=== PATIENT | female | born 1985 | race Caucasian/White ===

== ENCOUNTER 2017-08-11 13:02 | Emergency (ER) | payer OTHER ==
--- NOTE | 2017-08-11 14:41 | ER Document Report ---
HPI - HPI Patient complains to provider of: Eyelid irritation Onset: Other - 5 days Onset/Duration: Worse Quality of pain: Burning Pain Level: 3 Context: Patient had artificial lashes applied with cyanoacrylate 5 days ago. Patient states that she has had burning and irritation to her eyelid since then. Patient has attempted to use all of oil, coconut oil as well as steam to remove the eyelashes. Patient states she has pulled some of them off. Patient complains of eyelid redness and swelling with discomfort and wants something to take these eyelashes off with. Patient does not wear glasses or contact lenses. Associated Symptoms: Other - Eyelid irritation Exacerbated by: Denies Relieved by: Denies Similar symptoms previously: No Recently seen / treated by doctor: No - ROS ROS below otherwise negative: Yes Systems Reviewed and Negative: Yes All other systems reviewed and negative - CONSTITUTIONAL Constitutional: DENIES: Fever, Chills - EENT EENT: REPORTS: Eye problems - CARDIOVASCULAR Cardiovascular: DENIES: Chest pain - DERM Skin Color: Erythema Past Medical History - General Information source: Patient - Social History Smoking Status: Never Smoker Chew tobacco use (# tins/day): No Frequency of alcohol use: Occasional Drug Abuse: None Family History: Reviewed & Not Pertinent Patient has suicidal ideation: No Patient has homicidal ideation: No Endocrine Medical History: 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 Denies: Hx Peritoneal Dialysis Past Surgical History: Reports: Hx Adenoidectomy, Hx Orthopedic Surgery, Hx Tonsillectomy, Other - Lithotripsy Vertical Provider Document - CONSTITUTIONAL Agree With Documented VS: Yes Exam Limitations: No Limitations General Appearance: WD/WN Notes: Patient continually rubbing eyelids during examination, sclera clear bilaterally , no exudates noted to eye - INFECTION CONTROL TRAVEL OUTSIDE OF THE [place] IN LAST 30 DAYS: No - HEENT HEENT: Atraumatic, Normocephalic Notes: Mild inflammation to bilateral upper eyelids, artificial lashes applied above and below her eyelashes. No concern for preseptal or orbital cellulitis. Extraocular movements intact. - NECK Neck: Normal Inspection - RESPIRATORY Respiratory: No Respiratory Distress O2 Sat by Pulse Oximetry: 100 - MUSCULOSKELETAL/EXTREMETIES Musculoskeletal/Extremeties: MAEW - NEURO Level of Consciousness: Awake, Alert - Patient tearful - DERM Integumentary: Warm, Dry Course - Re-evaluation Re-evalutation: 08/11/17 14:45 Patient and her mother at bedside are very concerned that nobody is willing to do anything to attempt to remove her eyelashes. Consulted with Dr. Begum repeatedly about patient presentation and patient and her mother's requests for treatment. Consulted with Dr. Jasmine who does not have any recommendations for removing the eyelashes. Consulted with poison control who states that there is not any recommendation for removing the adhesive other than to let time pass so that they will gradually fall off on their own. Patient's mother at bedside insisting that a stronger antihistamine be written for her daughter as well as a narcotic prescription for pain medicine so that patient can rest because mother wants patient to be as comfortable as possible. Patient's mother advised that this condition does not warrant narcotic prescription, but a nonnarcotic medication would be written for patient. Mother states that the patient's pain is what she says it is and that we should be willing to give her something to make her more comfortable since we are unwilling to remove her eyelashes. Dr. Begum to bedside for consultation, reiterates planned course of treatment including oral antibiotics, topical antibiotics in addition to Atarax prescription. Patient's mother again requesting narcotic prescription, Dr. Begum advised that narcotics would not be reasonable for this complaint but that some tramadol could be written for patient. Patient's mother additionally requesting that a steroid pack be written as well. Dr. Begum agrees with this plan. - Vital Signs Vital signs: Temp Pulse Resp BP Pulse Ox 98.6 F 83 13 127/83 H 100 08/11/17 13:13 08/11/17 13:13 08/11/17 13:13 08/11/17 13:13 08/11/17 13:13 Discharge - Discharge Clinical Impression: Eyelid inflammation, hx artifical eyelash application Condition: Stable Disposition: HOME, SELF-CARE Instructions: Antihistamines ([facility]), Cephalexin ([facility]), Steroid Medication, Ultram ([facility]) Additional Instructions: Return immediately for any new or worsening symptoms Follow-up with die engraving supervisor for further evaluation, call today to make a follow-up appointment Prescriptions: Cephalexin Monohydrate [Keflex 500 mg Capsule] 500 mg PO Q6H 5 Days capsule Hydroxyzine HCl [Atarax 25 mg Tablet] 1 - 2 tab PO QID #15 tablet Methylprednisolone [Medrol Dosepack (4 mg/Tab) 21 Tab/Dosepak] 4 mg PO ASDIR PRN #21 tab.ds.pk PRN Reason: Mupirocin [Bactroban 2% Ointment 22 gm] 1 applic TP TID #22 gm Tramadol HCl [Ultram 50 mg Tablet] 50 mg PO ASDIR PRN #12 tablet PRN Reason: Referrals: KATHRYN JASMINE DO [ACTIVE STAFF] - Follow up tomorrow
[2017-08-11] MEDS ORDERED: HYDROXYZINE PAMOATE 50 MG CAPSULE PO ONE (14:54)
[2017-08-11] MEDS ORDERED: TRAMADOL HCL 50 MG TABLET PO ONE (14:54)
[2017-08-11] MEDS ORDERED: CEPHALEXIN 500 MG CAPSULE PO ONE (14:54)
[2017-08-11 15:01] VITALS: BP 113/80
== END 2017-08-11 15:17 | disposition home or self-care (01) ==
LOC: ER 13:02
DX: H57.8 Other specified disorders of eye and adnexa (principal); Z87.442 Personal history of urinary calculi
CPT/HCPCS: 99283